=== PATIENT | female | born 1985 | race African-American/Black ===

== ENCOUNTER 2021-11-23 00:05 | Emergency (ER) | payer SELFPAY ==
[~2021-11-23] VITALS: Ht 167.6 cm; Wt 100.0 kg
[2021-11-23 01:00] VITALS: BP 130/84
[2021-11-23] MEDS ORDERED: IBUPROFEN 400MG TABLET PO ONE (01:00)
[2021-11-23] MEDS ORDERED: ACETAMINOPHEN 325MG TABLET PO ONE (01:00)
[2021-11-23] MEDS ORDERED: TOPUD MT (02:34)
== END 2021-11-23 02:45 | disposition home or self-care (01) ==
LOC: ER 00:30
DX: M79.672 Pain in left foot (principal); M79.671 Pain in right foot; M25.572 Pain in left ankle and joints of left foot; M25.571 Pain in right ankle and joints of right foot; W01.0XXA Fall on same level from slipping, tripping and stumbling without subsequent striking against object, initial encounter; Y93.89 Activity, other specified; Y92.9 Unspecified place or not applicable
CPT/HCPCS: 73610; 73630; 99284